=== PATIENT | female | born 1995 | race Caucasian/White ===

== ENCOUNTER 2018-06-07 17:15 | Observation (INO) | payer BC ==
[2018-06-07] MEDS: Phenergan 25 MG INJ IV PRN ×2 (18:20→20:27)
[2018-06-07 18:26] LABS: Amphetamine,Urine NEGATIVE (NEGATIVE); Barbiturate,Urine NEGATIVE (NEGATIVE); Benzodiazepine,Urine NEGATIVE (NEGATIVE); Cocaine,Urine NEGATIVE (NEGATIVE); Methadone,Urine NEGATIVE (NEGATIVE); Opiate,Urine NEGATIVE (NEGATIVE); PCP,Urine NEGATIVE (NEGATIVE); THC,Urine NEGATIVE (NEGATIVE)
[2018-06-07 18:28] LABS: Appearance CLOUDY (CLEAR); Bilirubin NEGATIVE (NEGATIVE); Blood 250 Ery/ul (0-5); Glucose NEGATIVE (NEGATIVE); Ketones NEGATIVE (NEGATIVE); Leukocyte Esterase NEGATIVE (NEGATIVE); Nitrite NEGATIVE (NEGATIVE); Protein,Urine Dip TRACE (Negative); Specific Gravity 1.025 (1.005-1.025); Urobilinogen NORMAL mg/dL (0-1)
[2018-06-07 18:29] LABS: Bacteria MODERATE /HPF (NEGATIVE); Epithelial Cells MODERATE /HPF (FEW); Mucus MANY /HPF (NEGATIVE); RBC 50-100 /HPF (0-2)
[2018-06-07] MEDS ORDERED: Lactated Ringers 1,000 ML IV ONE (18:30)
[2018-06-07 18:46] LABS: BASOPHIL % 0.2 % (0.0-0.4); Basophil (Absolute #) 0.02 (0-0.4); Eosinophil % 0.3 % (0.00-5.0); Eosinophil (Absolute #) 0.04 (0-0.5); Granulocyte Absolute (ANC) 11.55 (1.4-6.9); Granulocytes % 87.1 % (36.0-66.0); Hematocrit 32.7 % (35-47); Hemoglobin 11.3 gm/dl (12.0-16.0); Lymphocyte (Absolute #) 0.97 (1.0-4.6); Lymphocytes % 7.3 % (24.0-44.0); Mean Cell Volume 89.1 fl (78-100); Mean Corpuscular Hgb Concent. 34.6 g/dl (32-36); Mean Platelet Volume 10.1 fl (6-9.5); Monocyte (Absolute #) 0.67 (0.0-1.3); Monocytes % 5.1 % (0.0-12.0); Platelet Count 224 K/mm3 (150-450); Red Blood Count 3.67 M/mm3 (4.1-5.4); Red Cell Distribution Width 12.5 % (11.5-14.0); White Blood Count 13.3 K/mm3 (4.0-10.5)
[2018-06-07 18:48] LABS: Mean Corpuscular Hemoglobin 30.7 pg (26-32)
[2018-06-07 19:03] LABS: ALKALINE PHOSPHATASE 95 U/L (38-126); ANION GAP 11.9 MEQ/L (5-15); BLOOD UREA NITROGEN 14 mg/dL (7-17); CHLORIDE 108 mmol/L (98-107); Calcium 8.7 mg/dL (8.4-10.2); Carbon Dioxide 20 mmol/L (22-30); Creatinine 1 0.63 mg/dL (0.52-1.04); Glucose 111 mg/dL (74-106); Potassium 3.8 mmol/L (3.5-5.1); SGOT/AST 20 U/L (14-36); SGPT/ALT 23 U/L (0-35); SODIUM 137 mmol/L (137-145); Total Protein 7.1 g/dL (6.3-8.2)
[2018-06-07] MEDS ORDERED: MORPHINE SULFATE 4 MG INJ IV PRN (20:14)
[2018-06-07] MEDS: Lactated Ringers 1,000 ML IV SCH (21:14)
[2018-06-08] MEDS: Lactated Ringers 1,000 ML IV SCH (04:36)
[2018-06-08 04:51] VITALS: O2SAT 95
[2018-06-08 05:51] LABS: Basophil (Absolute #) 0 (0-0.4); Eosinophil % 0.2 % (0.00-5.0); Eosinophil (Absolute #) 0.02 (0-0.5); Granulocyte Absolute (ANC) 10.03 (1.4-6.9); Granulocytes % 85.5 % (36.0-66.0); Hematocrit 29.7 % (35-47); Hemoglobin 10.2 gm/dl (12.0-16.0); Lymphocyte (Absolute #) 1.05 (1.0-4.6); Mean Cell Volume 89.5 fl (78-100); Mean Corpuscular Hemoglobin 30.7 pg (26-32); Mean Corpuscular Hgb Concent. 34.3 g/dl (32-36); Mean Platelet Volume 10.5 fl (6-9.5); Monocyte (Absolute #) 0.62 (0.0-1.3); Monocytes % 5.3 % (0.0-12.0); Platelet Count 236 K/mm3 (150-450); Red Blood Count 3.32 M/mm3 (4.1-5.4); Red Cell Distribution Width 12.4 % (11.5-14.0); White Blood Count 11.7 K/mm3 (4.0-10.5)
[2018-06-08 06:12] LABS: ANION GAP 12.1 MEQ/L (5-15); BLOOD UREA NITROGEN 9 mg/dL (7-17); CHLORIDE 109 mmol/L (98-107); Calcium 8.5 mg/dL (8.4-10.2); Carbon Dioxide 20 mmol/L (22-30); Creatinine 1 0.44 mg/dL (0.52-1.04); Glucose 90 mg/dL (74-106); SODIUM 137 mmol/L (137-145)
--- NOTE | 2018-06-08 08:50 | PCM.SSS ---
History of Present Illness - Chief Complaint Chief Complaint: ob check History of Present Illness: is a 23 year old female at 23w 6d today who came in yesterday c/ o sudden onset of R flank pain radiating to the R lower quadrant. No fever. Vomiting. WBC were 13,000 yesterday. CO2 20. She had an ultrasound last night negative for appendicitis. Positive for hydronephrosis but the final report is pending. Last night her pain was 8-9/10; she received 1 dose of morphine and phenergan last night. This morning she is denying pain or nausea. Is eating a clear liquid diet. - Review of Systems Constitutional: Weakness Abdominal/Gastrointestinal: Abdominal Pain, Nausea, Vomiting Musculoskeletal: Back Pain All Other Systems: Reviewed and Negative Medications & Allergies Home Medications: Home Medication List Vits W-Ca,Fe,FA(<1Mg) [] 1 each PO DAILY 06/07/18 [History Confirmed 06/07/18] Allergies/Adverse Reactions: Allergies Allergy/AdvReac Type Severity Reaction Status Date / Time No Known Drug Allergies Allergy Unverified 06/07/18 17:33 - Social History Smoking Status: Never smoker - Physical Exam Vital Signs: Vital Signs - 24 hr Temp Pulse Resp BP BP Pulse Ox 06/08/18 04:50 98.5 F 80 17 103/58 95 06/08/18 04:00 18 06/07/18 17:35 98.1 F 76 18 106/67 General Appearance: no apparent distress, alert Neurologic Exam: oriented x 3, cooperative, normal mood/affect Eye Exam: eyes nml inspection Ears, Nose, Throat Exam: moist mucous membranes Neck Exam: normal inspection Respiratory Exam: normal breath sounds, lungs clear, No crackles/rales, No rhonchi, No wheezing Cardiovascular Exam: regular rate/rhythm, normal heart sounds, No murmur Gastrointestinal/Abdomen Exam: soft, normal bowel sounds, other, No tenderness, No distention, No mass, No guarding, No rebound Pelvic Exam: vaginal bleeding (gravid; fundus palpable just superior to umbilicus) Back Exam: No CVA tenderness Extremity Exam: normal inspection, No pedal edema Skin Exam: normal color, warm, dry, No rash Results - Labs Lab/Micro Results: Lab Results-Last 24 Hours 06/07/18 06/07/18 06/07/18 Range/Units 18:07 18:07 18:44 WBC 13.3 H (4.0-10.5) K/mm3 RBC 3.67 L (4.1-5.4) M/mm3 Hgb 11.3 L (12.0-16.0) gm/dl Hct 32.7 L (35-47) % MCV 89.1 (78-100) fl MCH 30.7 (26-32) pg MCHC 34.6 (32-36) g/dl RDW 12.5 (11.5-14.0) % Plt Count 224 (150-450) K/mm3 MPV 10.1 H (6-9.5) fl Gran % 87.1 H (36.0-66.0) % Eos # (Auto) 0.04 (0-0.5) Absolute Lymphs (auto) 0.97 L (1.0-4.6) Absolute Monos (auto) 0.67 (0.0-1.3) Lymphocytes % 7.3 L (24.0-44.0) % Monocytes % 5.1 (0.0-12.0) % Eosinophils % 0.3 (0.00-5.0) % Basophils % 0.2 (0.0-0.4) % Absolute Granulocytes 11.55 H (1.4-6.9) Basophils # 0.02 (0-0.4) Sodium (137-145) mmol/L Potassium (3.5-5.1) mmol/L Chloride (98-107) mmol/L Carbon Dioxide (22-30) mmol/L Anion Gap (5-15) MEQ/L BUN (7-17) mg/dL Creatinine (0.52-1.04) mg/dL Estimated GFR ML/MIN Glucose (74-106) mg/dL Calcium (8.4-10.2) mg/dL Total Bilirubin (0.2-1.3) mg/dL AST (14-36) U/L ALT (0-35) U/L Alkaline Phosphatase (38-126) U/L Serum Total Protein (6.3-8.2) g/dL Albumin (3.5-5.0) g/dL Ur Collection Type VOID Urine Color YELLOW (YELLOW) Urine Appearance CLOUDY (CLEAR) Urine pH 5.0 (5-6) Ur Specific [place] 1.025 (1.005-1.025) Urine Protein TRACE (Negative) Urine Ketones NEGATIVE (NEGATIVE) Urine Blood 250 (0-5) Brendan/ul Urine Nitrite NEGATIVE (NEGATIVE) Urine Bilirubin NEGATIVE (NEGATIVE) Urine Urobilinogen NORMAL (0-1) mg/dL Ur Leukocyte Esterase NEGATIVE (NEGATIVE) Urine Microscopic RBC 50-100 (0-2) /HPF Urine Microscopic WBC 2-5 (0-5) /HPF Ur Epithelial Cells MODERATE (FEW) /HPF Urine Bacteria MODERATE (NEGATIVE) /HPF Urine Mucus MANY (NEGATIVE) /HPF Urine Culture Reflexed YES (NO) Urine Glucose NEGATIVE (NEGATIVE) mg/dL Urine Opiates Level NEGATIVE (NEGATIVE) Ur Methadone NEGATIVE (NEGATIVE) Urine Barbiturates NEGATIVE (NEGATIVE) Ur Phencyclidine (PCP) NEGATIVE (NEGATIVE) Urine Amphetamine NEGATIVE (NEGATIVE) U Benzodiazepine Level NEGATIVE (NEGATIVE) Urine Cocaine NEGATIVE (NEGATIVE) Urine Marijuana (THC) NEGATIVE (NEGATIVE) Specimen Received 06/07/18 1800 06/07/18 06/08/18 06/08/18 Range/Units 18:44 05:13 05:13 WBC 11.7 H (4.0-10.5) K/mm3 RBC 3.32 L (4.1-5.4) M/mm3 Hgb 10.2 L (12.0-16.0) gm/dl Hct 29.7 L (35-47) % MCV 89.5 (78-100) fl MCH 30.7 (26-32) pg MCHC 34.3 (32-36) g/dl RDW 12.4 (11.5-14.0) % Plt Count 236 (150-450) K/mm3 MPV 10.5 H (6-9.5) fl Gran % 85.5 H (36.0-66.0) % Eos # (Auto) 0.02 (0-0.5) Absolute Lymphs (auto) 1.05 (1.0-4.6) Absolute Monos (auto) 0.62 (0.0-1.3) Lymphocytes % 9.0 L (24.0-44.0) % Monocytes % 5.3 (0.0-12.0) % Eosinophils % 0.2 (0.00-5.0) % Basophils % 0.0 (0.0-0.4) % Absolute Granulocytes 10.03 H (1.4-6.9) Basophils # 0 (0-0.4) Sodium 137 137 (137-145) mmol/L Potassium 3.8 4.0 (3.5-5.1) mmol/L Chloride 108 H 109 H (98-107) mmol/L Carbon Dioxide 20 L 20 L (22-30) mmol/L Anion Gap 11.9 12.1 (5-15) MEQ/L BUN 14 9 (7-17) mg/dL Creatinine 0.63 0.44 L (0.52-1.04) mg/dL Estimated GFR > 60.0 > 60.0 ML/MIN Glucose 111 H 90 (74-106) mg/dL Calcium 8.7 8.5 (8.4-10.2) mg/dL Total Bilirubin 0.30 (0.2-1.3) mg/dL AST 20 (14-36) U/L ALT 23 (0-35) U/L Alkaline Phosphatase 95 (38-126) U/L Serum Total Protein 7.1 (6.3-8.2) g/dL Albumin 4.0 (3.5-5.0) g/dL Ur Collection Type Urine Color (YELLOW) Urine Appearance (CLEAR) Urine pH (5-6) Ur Specific [place] (1.005-1.025) Urine Protein (Negative) Urine Ketones (NEGATIVE) Urine Blood (0-5) Brendan/ul Urine Nitrite (NEGATIVE) Urine Bilirubin (NEGATIVE) Urine Urobilinogen (0-1) mg/dL Ur Leukocyte Esterase (NEGATIVE) Urine Microscopic RBC (0-2) /HPF Urine Microscopic WBC (0-5) /HPF Ur Epithelial Cells (FEW) /HPF Urine Bacteria (NEGATIVE) /HPF Urine Mucus (NEGATIVE) /HPF Urine Culture Reflexed (NO) Urine Glucose (NEGATIVE) mg/dL Urine Opiates Level (NEGATIVE) Ur Methadone (NEGATIVE) Urine Barbiturates (NEGATIVE) Ur Phencyclidine (PCP) (NEGATIVE) Urine Amphetamine (NEGATIVE) U Benzodiazepine Level (NEGATIVE) Urine Cocaine (NEGATIVE) Urine Marijuana (THC) (NEGATIVE) Specimen Received - Radiology Impressions Radiology Exams & Impressions: Radiology Procedures Category Date Time Status ABDOMINAL-LIMITED [US] Stat Exams 06/07/18 23:30 Taken KIDNEY [US] Stat Exams 06/07/18 23:30 Taken OB >14 WKS 1st GESTATION [US] Stat Exams 06/07/18 23:31 Taken Assessment/Plan (1) Current Visit: Yes Status: Acute Qualifiers: Weeks of gestation: 23 weeks Qualified Code(s): Z3A.23 - 23 weeks gestation of Assessment & Plan: FHT good here. OB u/s done yesterday, verbal report that baby looked fine. Final report pending. Code(s): Z34.90 - ENCNTR FOR SUPRVSN OF NORMAL , UNSP, UNSP TRIMESTER (2) Flank pain Current Visit: Yes Status: Resolved Code(s): R10.9 - UNSPECIFIED ABDOMINAL PAIN (3) Abdominal pain Current Visit: Yes Status: Resolved Code(s): R10.9 - UNSPECIFIED ABDOMINAL PAIN (4) Hydronephrosis Current Visit: Yes Status: Chronic Qualifiers: Hydronephrosis type: unspecified Qualified Code(s): N13.30 - Unspecified hydronephrosis Assessment & Plan: Final report pending. Code(s): N13.30 - UNSPECIFIED HYDRONEPHROSIS (5) Leukocytosis Current Visit: Yes Status: Acute Qualifiers: Leukocytosis type: unspecified Qualified Code(s): D72.829 - Elevated white blood cell count, unspecified Assessment & Plan: improved; may have been up due to vomiting. Code(s): D72.829 - ELEVATED WHITE BLOOD CELL COUNT, UNSPECIFIED Hospital Summary - Hospital Course Hospital Course: is a 23 year old female at 23w 6d today who came in yesterday c/ o sudden onset of R flank pain radiating to the R lower quadrant. No fever. Vomiting. WBC were 13,000 yesterday. CO2 20. She had an ultrasound last night negative for appendicitis. Positive for hydronephrosis but the final report is pending. Last night her pain was 8-9/10; she received 1 dose of morphine and phenergan last night. This morning she is denying pain or nausea. Is eating a clear liquid diet. After her final u/s report is in, will likely discharge to home on bland diet for today. - Vitals & Intake/Output Vital Signs: Vital Signs Temperature 98.5 F 06/08/18 04:50 Pulse Rate 80 06/08/18 04:50 Respiratory Rate 17 06/08/18 04:50 Blood Pressure 103/58 06/08/18 04:50 O2 Sat by Pulse Oximetry 95 06/08/18 04:50 Intake & Output: Intake & Output 06/05/18 06/06/18 06/07/18 06/08/18 11:59 11:59 11:59 11:59 Intake Total 2089 Output Total 150 Balance 1939 Weight 80.739 kg - Lab Result Diagrams: 06/08/18 05:13 06/08/18 05:13 Lab Results-Last 24 Hrs: Lab Results-Last 24 Hours 06/07/18 06/07/18 06/07/18 Range/Units 18:07 18:07 18:44 WBC 13.3 H (4.0-10.5) K/mm3 RBC 3.67 L (4.1-5.4) M/mm3 Hgb 11.3 L (12.0-16.0) gm/dl Hct 32.7 L (35-47) % MCV 89.1 (78-100) fl MCH 30.7 (26-32) pg MCHC 34.6 (32-36) g/dl RDW 12.5 (11.5-14.0) % Plt Count 224 (150-450) K/mm3 MPV 10.1 H (6-9.5) fl Gran % 87.1 H (36.0-66.0) % Eos # (Auto) 0.04 (0-0.5) Absolute Lymphs (auto) 0.97 L (1.0-4.6) Absolute Monos (auto) 0.67 (0.0-1.3) Lymphocytes % 7.3 L (24.0-44.0) % Monocytes % 5.1 (0.0-12.0) % Eosinophils % 0.3 (0.00-5.0) % Basophils % 0.2 (0.0-0.4) % Absolute Granulocytes 11.55 H (1.4-6.9) Basophils # 0.02 (0-0.4) Sodium (137-145) mmol/L Potassium (3.5-5.1) mmol/L Chloride (98-107) mmol/L Carbon Dioxide (22-30) mmol/L Anion Gap (5-15) MEQ/L BUN (7-17) mg/dL Creatinine (0.52-1.04) mg/dL Estimated GFR ML/MIN Glucose (74-106) mg/dL Calcium (8.4-10.2) mg/dL Total Bilirubin (0.2-1.3) mg/dL AST (14-36) U/L ALT (0-35) U/L Alkaline Phosphatase (38-126) U/L Serum Total Protein (6.3-8.2) g/dL Albumin (3.5-5.0) g/dL Ur Collection Type VOID Urine Color YELLOW (YELLOW) Urine Appearance CLOUDY (CLEAR) Urine pH 5.0 (5-6) Ur Specific [place] 1.025 (1.005-1.025) Urine Protein TRACE (Negative) Urine Ketones NEGATIVE (NEGATIVE) Urine Blood 250 (0-5) Brendan/ul Urine Nitrite NEGATIVE (NEGATIVE) Urine Bilirubin NEGATIVE (NEGATIVE) Urine Urobilinogen NORMAL (0-1) mg/dL Ur Leukocyte Esterase NEGATIVE (NEGATIVE) Urine Microscopic RBC 50-100 (0-2) /HPF Urine Microscopic WBC 2-5 (0-5) /HPF Ur Epithelial Cells MODERATE (FEW) /HPF Urine Bacteria MODERATE (NEGATIVE) /HPF Urine Mucus MANY (NEGATIVE) /HPF Urine Culture Reflexed YES (NO) Urine Glucose NEGATIVE (NEGATIVE) mg/dL Urine Opiates Level NEGATIVE (NEGATIVE) Ur Methadone NEGATIVE (NEGATIVE) Urine Barbiturates NEGATIVE (NEGATIVE) Ur Phencyclidine (PCP) NEGATIVE (NEGATIVE) Urine Amphetamine NEGATIVE (NEGATIVE) U Benzodiazepine Level NEGATIVE (NEGATIVE) Urine Cocaine NEGATIVE (NEGATIVE) Urine Marijuana (THC) NEGATIVE (NEGATIVE) Specimen Received 06/07/18 1800 06/07/18 06/08/18 06/08/18 Range/Units 18:44 05:13 05:13 WBC 11.7 H (4.0-10.5) K/mm3 RBC 3.32 L (4.1-5.4) M/mm3 Hgb 10.2 L (12.0-16.0) gm/dl Hct 29.7 L (35-47) % MCV 89.5 (78-100) fl MCH 30.7 (26-32) pg MCHC 34.3 (32-36) g/dl RDW 12.4 (11.5-14.0) % Plt Count 236 (150-450) K/mm3 MPV 10.5 H (6-9.5) fl Gran % 85.5 H (36.0-66.0) % Eos # (Auto) 0.02 (0-0.5) Absolute Lymphs (auto) 1.05 (1.0-4.6) Absolute Monos (auto) 0.62 (0.0-1.3) Lymphocytes % 9.0 L (24.0-44.0) % Monocytes % 5.3 (0.0-12.0) % Eosinophils % 0.2 (0.00-5.0) % Basophils % 0.0 (0.0-0.4) % Absolute Granulocytes 10.03 H (1.4-6.9) Basophils # 0 (0-0.4) Sodium 137 137 (137-145) mmol/L Potassium 3.8 4.0 (3.5-5.1) mmol/L Chloride 108 H 109 H (98-107) mmol/L Carbon Dioxide 20 L 20 L (22-30) mmol/L Anion Gap 11.9 12.1 (5-15) MEQ/L BUN 14 9 (7-17) mg/dL Creatinine 0.63 0.44 L (0.52-1.04) mg/dL Estimated GFR > 60.0 > 60.0 ML/MIN Glucose 111 H 90 (74-106) mg/dL Calcium 8.7 8.5 (8.4-10.2) mg/dL Total Bilirubin 0.30 (0.2-1.3) mg/dL AST 20 (14-36) U/L ALT 23 (0-35) U/L Alkaline Phosphatase 95 (38-126) U/L Serum Total Protein 7.1 (6.3-8.2) g/dL Albumin 4.0 (3.5-5.0) g/dL Ur Collection Type Urine Color (YELLOW) Urine Appearance (CLEAR) Urine pH (5-6) Ur Specific [place] (1.005-1.025) Urine Protein (Negative) Urine Ketones (NEGATIVE) Urine Blood (0-5) Brendan/ul Urine Nitrite (NEGATIVE) Urine Bilirubin (NEGATIVE) Urine Urobilinogen (0-1) mg/dL Ur Leukocyte Esterase (NEGATIVE) Urine Microscopic RBC (0-2) /HPF Urine Microscopic WBC (0-5) /HPF Ur Epithelial Cells (FEW) /HPF Urine Bacteria (NEGATIVE) /HPF Urine Mucus (NEGATIVE) /HPF Urine Culture Reflexed (NO) Urine Glucose (NEGATIVE) mg/dL Urine Opiates Level (NEGATIVE) Ur Methadone (NEGATIVE) Urine Barbiturates (NEGATIVE) Ur Phencyclidine (PCP) (NEGATIVE) Urine Amphetamine (NEGATIVE) U Benzodiazepine Level (NEGATIVE) Urine Cocaine (NEGATIVE) Urine Marijuana (THC) (NEGATIVE) Specimen Received - Radiology Exams Ordered Rad Exams-Entire Visit: Radiology Procedures Category Date Time Status ABDOMINAL-LIMITED [US] Stat Exams 06/07/18 23:30 Taken KIDNEY [US] Stat Exams 06/07/18 23:30 Taken OB >14 WKS 1st GESTATION [US] Stat Exams 06/07/18 23:31 Taken - Discharge Disposition: Home, Self-Care Condition: Stable Prescriptions: No Action Vits W-Ca,Fe,FA(<1Mg) [] 1 each PO DAILY Follow up with: HAY GARCIA [Primary Care Provider] - 1 Week
--- NOTE | 2018-06-08 09:18 | XRAY ---
Indication: Right lower quadrant pain. 24 weeks . Two-dimensional renal sonogram performed. Comparison: None Right kidney measures 12.0 x 5.2 x 5.4 cm and the left measures 12.5 x 5.0 x 5.4 cm. Normal color Doppler flow bilaterally. No suspicious solid/cystic mass. There is mild/moderate bilateral hydronephrosis without perinephric fluid. Images of the nominally distended urinary bladder unremarkable. Ureteral jets not seen within the allotted exam time. Impression: Bilateral hydronephrosis presumed related to current gravid status. Comment: Preliminary report was given.
--- NOTE | 2018-06-08 09:18 | XRAY ---
Indication: Right lower quadrant pain. 24 weeks . Two-dimensional targeted right lower quadrant sonogram performed. Appendix not seen. No suspicious solid/cystic mass or free fluid. Comment: Preliminary report was given.
--- NOTE | 2018-06-08 09:19 | XRAY ---
Indication: Right lower quadrant pain. 2-dimensional OB ultrasound performed. Comparison: May 10, 2018. There is a again single viable intrauterine in cephalic presentation. heart rate 161 BPM. anatomy previously documented. Visualized stomach, kidneys, and bladder are unremarkable. Placenta is again anterior without abruption/previa. BPD measures 6.04 cm corresponding to 24 weeks 4 days. HC measures 21.98 cm corresponding to 24 weeks 0 days. AC measures 18.11 cm corresponding to 23 weeks 0 days. FL measures 4.52 cm corresponding to 25 weeks 0 days. TIAGO is 10.2 cm. Impression: Again single viable intrauterine with mean gestational age 24 weeks 1 day. Normal progression of . No new/acute findings. Comment: Preliminary report was given.
[2018-06-08 10:50] VITALS: BP 100/66; PULSE 82
== END 2018-06-08 10:40 | disposition home or self-care (01) ==
LOC: MED SURG 17:15
PROVIDERS: ADMIT Family Medicine; ATTEND Family Medicine
DX: O26.93 Pregnancy related conditions, unspecified, third trimester (principal); Z3A.23 23 weeks gestation of pregnancy; R10.9 Unspecified abdominal pain; D72.829 Elevated white blood cell count, unspecified
CPT/HCPCS: 36415; 76705; 76770; 76805; 80048; 80053; 80307; 81000; 85025; 87086; G0378; J2270; J2550

== ENCOUNTER 2018-06-14 22:38 | Observation (INO) | payer BC ==
[2018-06-15] MEDS ORDERED: Phenergan 25 MG INJ IV PRN (00:35)
[2018-06-15] MEDS ORDERED: TYLENOL EXTRA STRENGTH 500 MG PO PRN (00:36)
[2018-06-15] MEDS ORDERED: MORPHINE SULFATE 4 MG INJ IV PRN (00:37)
[2018-06-15] MEDS ORDERED: Lactated Ringers 1,000 ML IV SCH ×2 (01:00→02:00)
[2018-06-15 03:53] LABS: ALBUMIN 3.8 g/dL (3.5-5.0); ALKALINE PHOSPHATASE 97 U/L (38-126); ANION GAP 12.5 MEQ/L (5-15); BLOOD UREA NITROGEN 13 mg/dL (7-17); CHLORIDE 106 mmol/L (98-107); Calcium 9.1 mg/dL (8.4-10.2); Carbon Dioxide 22 mmol/L (22-30); Creatinine 1 0.66 mg/dL (0.52-1.04); Glucose 101 mg/dL (74-106); Potassium 3.7 mmol/L (3.5-5.1); SGOT/AST 24 U/L (14-36); SGPT/ALT 21 U/L (0-35); SODIUM 137 mmol/L (137-145)
[2018-06-15 04:18] LABS: Appearance CLEAR (CLEAR); Bilirubin NEGATIVE (NEGATIVE); Blood 50 Ery/ul (0-5); Glucose NEGATIVE (NEGATIVE); Ketones NEGATIVE (NEGATIVE); Leukocyte Esterase NEGATIVE (NEGATIVE); Nitrite NEGATIVE (NEGATIVE); Ph 7.5 (5-6); Protein,Urine Dip NEGATIVE (Negative); Specific Gravity 1.005 (1.005-1.025); Urobilinogen NORMAL mg/dL (0-1)
[2018-06-15 04:19] LABS: Bacteria FEW /HPF (NEGATIVE); Epithelial Cells FEW /HPF (FEW); WBC 0-2 /HPF (0-5)
[2018-06-15 04:29] LABS: BASOPHIL % 0.1 % (0.0-0.4); Basophil (Absolute #) 0.01 (0-0.4); Eosinophil % 0.3 % (0.00-5.0); Eosinophil (Absolute #) 0.03 (0-0.5); Granulocyte Absolute (ANC) 9.37 (1.4-6.9); Hematocrit 33.2 % (35-47); Hemoglobin 11.3 gm/dl (12.0-16.0); Lymphocyte (Absolute #) 0.88 (1.0-4.6); Lymphocytes % 7.9 % (24.0-44.0); Mean Cell Volume 89.2 fl (78-100); Mean Platelet Volume 11.2 fl (6-9.5); Monocyte (Absolute #) 0.86 (0.0-1.3); Monocytes % 7.7 % (0.0-12.0); Platelet Count 209 K/mm3 (150-450); Red Blood Count 3.72 M/mm3 (4.1-5.4); Red Cell Distribution Width 12.7 % (11.5-14.0); White Blood Count 11.2 K/mm3 (4.0-10.5)
[2018-06-15 04:30] LABS: Mean Corpuscular Hemoglobin 30.3 pg (26-32)
--- NOTE | 2018-06-15 10:30 | XRAY ---
Indication: Right lower quadrant pain. Two-dimensional gallbladder sonogram performed. Comparison: None Visualized portions of the gallbladder, liver, and pancreas appear sonographically normal. Common bile duct measures 3.9 mm. No ascites. Renal sonogram reported separately. Incidental small right lung base effusion. Impression: Negative gallbladder sonogram. Incidental right lung base effusion.
--- NOTE | 2018-06-15 10:32 | XRAY ---
Indication: Right lower quadrant pain. 3rd trimester . Two-dimensional renal sonogram performed. Comparison: June 07, 2018. Right kidney measures 11.5 x 5.8 x 5.9 cm and the left measures 11.4 x 5.8 x 5.2 cm again with normal color Doppler flow. Again no solid/cystic mass. There remains moderate bilateral hydronephrosis without perinephric fluid. Images of the urinary bladder normally distended. Normal right ureteral jet. Left ureteral jet not seen within the allotted exam time. Impression: Stable bilateral hydronephrosis again presumed related to current gravid status.
[2018-06-15 11:16] VITALS: BP 108/64; PULSE 93
[2018-06-16] MEDS ORDERED: BUSPAR 5 MG PO SCH (10:00)
[2018-06-16] MEDS ORDERED: Lexapro 10 MG PO SCH (10:00)
== END 2018-06-15 11:05 | disposition home or self-care (01) ==
LOC: OB 22:38
PROVIDERS: ADMIT Family Medicine; ATTEND Family Medicine
DX: Z34.02 Encounter for supervision of normal first pregnancy, second trimester (principal)
CPT/HCPCS: 36415; 76705; 76770; 80053; 81000; 85025; G0378; J2270; J2550

== ENCOUNTER 2018-07-06 07:13 | Observation (INO) | payer BC ==
[2018-07-06] MEDS ORDERED: Phenergan 25 MG INJ IV PRN (08:12)
[2018-07-06 08:17] LABS: Appearance CLEAR (CLEAR); Bacteria MODERATE /HPF (NEGATIVE); Bilirubin NEGATIVE (NEGATIVE); Blood 50 Ery/ul (0-5); Epithelial Cells FEW /HPF (FEW); Glucose NEGATIVE (NEGATIVE); Ketones NEGATIVE (NEGATIVE); Leukocyte Esterase TRACE (NEGATIVE); Mucus MODERATE /HPF (NEGATIVE); Nitrite NEGATIVE (NEGATIVE); Protein,Urine Dip NEGATIVE (Negative); Urobilinogen NORMAL mg/dL (0-1)
[2018-07-06] MEDS ORDERED: Lactated Ringers 1,000 ML IV SCH ×2 (08:30→09:30)
[2018-07-06] MEDS: MORPHINE SULFATE 4 MG INJ IV PRN ×2 (09:21→13:23)
[2018-07-06 09:35] LABS: Basophil (Absolute #) 0 (0-0.4); Eosinophil % 0.1 % (0.00-5.0); Eosinophil (Absolute #) 0.01 (0-0.5); Granulocyte Absolute (ANC) 12.16 (1.4-6.9); Granulocytes % 89.7 % (36.0-66.0); Hematocrit 35.4 % (35-47); Hemoglobin 12.2 gm/dl (12.0-16.0); Lymphocyte (Absolute #) 0.74 (1.0-4.6); Lymphocytes % 5.5 % (24.0-44.0); Mean Cell Volume 88.1 fl (78-100); Mean Corpuscular Hemoglobin 30.3 pg (26-32); Mean Corpuscular Hgb Concent. 34.5 g/dl (32-36); Mean Platelet Volume 10.5 fl (6-9.5); Monocyte (Absolute #) 0.63 (0.0-1.3); Monocytes % 4.7 % (0.0-12.0); Platelet Count 230 K/mm3 (150-450); Red Blood Count 4.02 M/mm3 (4.1-5.4); Red Cell Distribution Width 12.1 % (11.5-14.0); White Blood Count 13.5 K/mm3 (4.0-10.5)
[2018-07-06 09:58] LABS: ALBUMIN 3.9 g/dL (3.5-5.0); ALKALINE PHOSPHATASE 114 U/L (38-126); ANION GAP 14.2 MEQ/L (5-15); BLOOD UREA NITROGEN 13 mg/dL (7-17); CHLORIDE 108 mmol/L (98-107); Calcium 8.8 mg/dL (8.4-10.2); Carbon Dioxide 20 mmol/L (22-30); Creatinine 1 0.58 mg/dL (0.52-1.04); Glucose 84 mg/dL (74-106); Potassium 4.4 mmol/L (3.5-5.1); SGOT/AST 33 U/L (14-36); SGPT/ALT 37 U/L (0-35); SODIUM 138 mmol/L (137-145); Total Protein 7.1 g/dL (6.3-8.2)
--- NOTE | 2018-07-06 10:38 | XRAY ---
Exam: Renal ultrasound from 07/06/2018. Comparison: Renal ultrasound examination from 06/15/2018. Indication: 23-year-old female with left flank pain. The patient is in her third trimester of . Technique: Longitudinal and transverse real-time sonogram images were obtained. Findings: The right kidney measures 12.2 cm x 5.6 cm x 5.5 cm. Right renal cortex thickness measures 1.0 cm. There is moderate hydronephrosis with a dilated renal pelvis measuring 2.3 cm in diameter, previous 2.1 cm. This is slightly more distended than that seen on 06/15/2018. No renal mass is seen. Only the proximal right ureter could be visualized which appeared dilated. The left kidney measures 12.8 cm x 5.7 cm x 5.8 cm. Left renal cortex thickness is 1.0 cm. The left renal pelvis measures 2.9 cm in diameter which is mildly increased from that seen on 06/15/2018 when it measured 2.3 cm in diameter. No left renal mass is seen. The visualized proximal left ureter was also dilated. The head is again seen within the maternal pelvis. The maternal urinary bladder is partially empty. Ureteral jets were not seen with color flow imaging on either side during the allotted time. Impression: 1. I again see bilateral hydronephrosis, left greater than right. The degree of hydronephrosis on each side appears slightly increased compared to 06/15/2018.
[2018-07-06 17:48] VITALS: BP 114/70; PULSE 80
== END 2018-07-06 19:32 | disposition home or self-care (01) ==
LOC: OB 07:13
PROVIDERS: ADMIT Family Medicine; ATTEND Family Medicine
DX: Z34.02 Encounter for supervision of normal first pregnancy, second trimester (principal)
CPT/HCPCS: 36415; 76770; 80053; 81001; 85025; 87086; G0378; J2270; J2550

== ENCOUNTER 2018-09-28 11:04 | Observation (INO) | payer BC ==
[2018-09-28 11:25] VITALS: BP 121/88; PULSE 89
--- NOTE | 2018-09-28 12:36 | XRAY ---
Indication: Evaluate TIAGO. Limited OB ultrasound performed to evaluate TIAGO. Four-quadrant TIAGO is 9 cm, previously 8.1 cm on September 23, 2018.
== END 2018-09-28 13:30 | disposition home or self-care (01) ==
LOC: OB 11:04
PROVIDERS: ADMIT Family Medicine; ATTEND Family Medicine
DX: Z34.03 Encounter for supervision of normal first pregnancy, third trimester (principal)
CPT/HCPCS: 59025; 76815; G0378

== ENCOUNTER 2018-09-29 09:40 | Observation (INO) | payer BC ==
[2018-09-29 10:56] LABS: Appearance CLEAR (CLEAR); Bilirubin NEGATIVE (NEGATIVE); Blood NEGATIVE Ery/ul (0-5); Glucose NEGATIVE (NEGATIVE); Ketones NEGATIVE (NEGATIVE); Leukocyte Esterase NEGATIVE (NEGATIVE); Nitrite NEGATIVE (NEGATIVE); Protein,Urine Dip NEGATIVE (Negative); Specific Gravity 1.016 (1.005-1.025); Urobilinogen NEGATIVE mg/dL (0-1)
[2018-09-29] MEDS ORDERED: Lactated Ringers 1,000 ML IV SCH ×2 (12:00→15:00)
[2018-09-29 12:19] LABS: BASOPHIL % 0.2 % (0.0-0.4); Basophil (Absolute #) 0.02 (0-0.4); Eosinophil % 0.6 % (0.00-5.0); Eosinophil (Absolute #) 0.05 (0-0.5); Granulocyte Absolute (ANC) 6.84 (1.4-6.9); Hematocrit 36.4 % (35-47); Hemoglobin 11.7 gm/dl (12.0-16.0); Lymphocyte (Absolute #) 1.01 (1.0-4.6); Lymphocytes % 11.8 % (24.0-44.0); Mean Cell Volume 84.5 fl (78-100); Mean Corpuscular Hemoglobin 27.1 pg (26-32); Mean Corpuscular Hgb Concent. 32.1 g/dl (32-36); Mean Platelet Volume 11.2 fl (6-9.5); Monocyte (Absolute #) 0.63 (0.0-1.3); Monocytes % 7.4 % (0.0-12.0); Platelet Count 216 K/mm3 (150-450); Red Blood Count 4.31 M/mm3 (4.1-5.4); Red Cell Distribution Width 18.6 % (11.5-14.0); White Blood Count 8.6 K/mm3 (4.0-10.5)
[2018-09-29 12:29] LABS: ALBUMIN 3.7 g/dL (3.5-5.0); ALKALINE PHOSPHATASE 211 U/L (38-126); ANION GAP 12.5 MEQ/L (5-15); BLOOD UREA NITROGEN 11 mg/dL (7-17); CHLORIDE 108 mmol/L (98-107); Calcium 8.9 mg/dL (8.4-10.2); Carbon Dioxide 20 mmol/L (22-30); Creatinine 1 0.51 mg/dL (0.52-1.04); Glucose 81 mg/dL (74-106); SGOT/AST 22 U/L (14-36); SGPT/ALT 14 U/L (0-35); SODIUM 137 mmol/L (137-145)
[2018-09-29 19:19] VITALS: BP 112/72; PULSE 80
== END 2018-09-29 19:15 | disposition home or self-care (01) ==
LOC: OB 09:40 → UNDOADMOB 09:40 → OB 09:41 → MED SURG 13:37 → OB 13:37
PROVIDERS: ADMIT Family Medicine; ATTEND Family Medicine
DX: Z34.03 Encounter for supervision of normal first pregnancy, third trimester (principal)
CPT/HCPCS: 36415; 59025; 80053; 81001; 85025; G0378

== ENCOUNTER 2018-09-30 14:03 | Observation (INO) | payer BC ==
[2018-09-30] MEDS ORDERED: BRETHINE 1 MG/ML SQ PRN (14:19)
[2018-09-30] MEDS ORDERED: TYLENOL EXTRA STRENGTH 500 MG PO PRN (14:27)
[2018-09-30] MEDS ORDERED: PITOCIN 30 UNITS/ LR 500 ML 500 ML IV SCH ×2 (14:30)
[2018-09-30] MEDS ORDERED: Lactated Ringers 1,000 ML IV SCH (14:30)
[2018-09-30 15:39] LABS: BASOPHIL % 0.1 % (0.0-0.4); Basophil (Absolute #) 0.01 (0-0.4); Eosinophil % 0.7 % (0.00-5.0); Eosinophil (Absolute #) 0.05 (0-0.5); Granulocyte Absolute (ANC) 5.58 (1.4-6.9); Granulocytes % 77.5 % (36.0-66.0); Hematocrit 35.5 % (35-47); Hemoglobin 11.5 gm/dl (12.0-16.0); Lymphocyte (Absolute #) 0.92 (1.0-4.6); Lymphocytes % 12.8 % (24.0-44.0); Mean Cell Volume 84.9 fl (78-100); Mean Corpuscular Hemoglobin 27.5 pg (26-32); Mean Corpuscular Hgb Concent. 32.4 g/dl (32-36); Mean Platelet Volume 10.7 fl (6-9.5); Monocyte (Absolute #) 0.64 (0.0-1.3); Monocytes % 8.9 % (0.0-12.0); Platelet Count 216 K/mm3 (150-450); Red Blood Count 4.18 M/mm3 (4.1-5.4); Red Cell Distribution Width 18.8 % (11.5-14.0); White Blood Count 7.2 K/mm3 (4.0-10.5)
[2018-09-30 17:31] LABS: Amphetamine,Urine NEGATIVE (NEGATIVE); Barbiturate,Urine NEGATIVE (NEGATIVE); Benzodiazepine,Urine NEGATIVE (NEGATIVE); Cocaine,Urine NEGATIVE (NEGATIVE); Methadone,Urine NEGATIVE (NEGATIVE); Opiate,Urine NEGATIVE (NEGATIVE); PCP,Urine NEGATIVE (NEGATIVE); THC,Urine NEGATIVE (NEGATIVE)
[2018-09-30] MEDS ORDERED: OMNIPEN 1GM / NaCl 100ML 100 ML IV SCH (18:27)
[2018-09-30] MEDS ORDERED: Cervidil 10 MG VAG SCH (22:00)
[2018-10-01] MEDS ORDERED: OMNIPEN 2 GM / NACL 100ML 100 ML IV ONE (05:00)
[2018-10-01] MEDS: Lactated Ringers 1,000 ML IV SCH ×2 (05:00→12:36)
[2018-10-01] MEDS ORDERED: PITOCIN 30 UNITS/ LR 500 ML 500 ML IV SCH (05:00)
[2018-10-01] MEDS: OMNIPEN 1GM / NaCl 100ML 100 ML IV SCH ×4 (09:02→20:58)
[2018-10-02] MEDS: OMNIPEN 1GM / NaCl 100ML 100 ML IV SCH ×3 (01:26→09:15)
--- NOTE | 2018-10-02 10:28 | PCM.DS ---
Discharge Summary Date of Admission: 09/30/18 14:03 Admitting Physician: HAY GARCIA Primary Care Provider: HAY GARCIA Allergies Allergies No Known Drug Allergies Allergy (Unverified 06/07/18 17:33) Hospital Summary - Hospital Course Hospital Course: Pt is 23 yo at 40w 3d here for post dates IOL. She came in with a closed cervix, De La Garza score about 3. She received cervadil all night, then pitocin the next day, with scant contractions and no cervical change. Received 3 doses of cytotec with scant contractions. Baby FHT Cat I throughout. She will be discharged to home today and plans to return in 4d to re-cervadil. - Vitals & Intake/Output Vital Signs: Vital Signs Temperature 97.9 F 10/02/18 08:00 Pulse Rate 86 10/02/18 08:00 Respiratory Rate 18 10/02/18 08:00 Blood Pressure 127/89 10/02/18 08:00 O2 Sat by Pulse Oximetry Intake & Output: Intake & Output 09/29/18 09/30/18 10/01/18 10/02/18 11:59 11:59 11:59 11:59 Intake Total 1200 3279 Balance 1200 3279 Weight 197 kg - Lab Result Diagrams: 09/30/18 15:37 Discharge Exam General Appearance: no apparent distress, alert Neurologic Exam: oriented x 3, cooperative Skin Exam: normal color, warm, dry, No rash Respiratory Exam: No respiratory distress Gastrointestinal/Abdomen Exam: other (gravid) Extremity Exam: normal inspection, No pedal edema, No swelling Final Diagnosis/Problem List - Final Discharge Diagnosis/Problem (1) Current Visit: No Status: Acute Assessment & Plan: Very stable - will discharge to home and have her come back to re-induce in 4d. Labor precautions given. - Discharge Disposition: Home, Self-Care Condition: Good Prescriptions: No Action Vits W-Ca,Fe,FA(<1Mg) [] 1 each PO DAILY Follow up with: HAY GARCIA [Primary Care Provider] - 1 Week
[2018-10-02 11:14] VITALS: BP 117/79; PULSE 75
== END 2018-10-02 10:45 | disposition home or self-care (01) ==
LOC: OB 14:03
PROVIDERS: ADMIT Family Medicine; ATTEND Family Medicine
DX: O61.0 Failed medical induction of labor (principal); Z3A.40 40 weeks gestation of pregnancy
CPT/HCPCS: 36415; 80307; 85025; G0378; J0290; J2590

== ENCOUNTER 2018-10-06 18:01 | Inpatient (IN) | payer BC ==
[2018-10-06] MEDS ORDERED: BRETHINE 1 MG/ML SQ PRN (18:20)
[2018-10-06] MEDS ORDERED: XYLOCAINE 1% HCL 20 ML MDV IJ PRN (21:41)
[2018-10-06 21:57] LABS: BASOPHIL % 0.3 % (0.0-0.4); Basophil (Absolute #) 0.02 (0-0.4); Eosinophil % 1.2 % (0.00-5.0); Eosinophil (Absolute #) 0.08 (0-0.5); Granulocyte Absolute (ANC) 5.17 (1.4-6.9); Hemoglobin 11.7 gm/dl (12.0-16.0); Lymphocyte (Absolute #) 1.03 (1.0-4.6); Lymphocytes % 14.9 % (24.0-44.0); Mean Cell Volume 84.5 fl (78-100); Mean Corpuscular Hgb Concent. 32.5 g/dl (32-36); Mean Platelet Volume 12.1 fl (6-9.5); Monocyte (Absolute #) 0.59 (0.0-1.3); Monocytes % 8.6 % (0.0-12.0); Platelet Count 225 K/mm3 (150-450); Red Blood Count 4.26 M/mm3 (4.1-5.4); Red Cell Distribution Width 18.5 % (11.5-14.0); White Blood Count 6.9 K/mm3 (4.0-10.5)
[2018-10-06] MEDS ORDERED: PITOCIN 30 UNITS/ LR 500 ML 500 ML IV SCH (22:00)
[2018-10-06] MEDS ORDERED: Cervidil 10 MG VAG SCH (22:00)
[2018-10-06 22:02] LABS: Mean Corpuscular Hemoglobin 27.4 pg (26-32)
[2018-10-06 22:15] LABS: Amphetamine,Urine NEGATIVE (NEGATIVE); Barbiturate,Urine NEGATIVE (NEGATIVE); Benzodiazepine,Urine NEGATIVE (NEGATIVE); Cocaine,Urine NEGATIVE (NEGATIVE); Methadone,Urine NEGATIVE (NEGATIVE); Opiate,Urine NEGATIVE (NEGATIVE); PCP,Urine NEGATIVE (NEGATIVE); THC,Urine NEGATIVE (NEGATIVE)
[2018-10-07] MEDS ORDERED: PITOCIN 30 UNITS/ LR 500 ML 500 ML IV SCH (10:00)
[2018-10-07] MEDS ORDERED: OMNIPEN 2 GM / NACL 100ML 100 ML IV ONE (10:00)
[2018-10-07] MEDS: Lactated Ringers 1,000 ML IV SCH ×2 (10:06→19:37)
[2018-10-07] MEDS: OMNIPEN 1GM / NaCl 100ML 100 ML IV SCH ×3 (14:06→22:50)
[2018-10-08] MEDS: OMNIPEN 1GM / NaCl 100ML 100 ML IV SCH ×3 (02:19→10:14)
[2018-10-08] MEDS: Lactated Ringers 1,000 ML IV SCH ×4 (04:52→23:55)
[2018-10-08] MEDS ORDERED: Ephedrine Sulfate 50 MG/ML IV PRN (08:00)
[2018-10-08] MEDS ORDERED: Lactated Ringers 1,000 ML IV ONE (08:00)
[2018-10-08] MEDS ORDERED: OB EPIDURAL NAROPIN/SUFENTANIL IN NACL EPIDURAL PRN (08:00)
[2018-10-08] MEDS ORDERED: Mylicon 80MG PO PRN (13:32)
[2018-10-08] MEDS ORDERED: TUCKS TP PRN (13:32)
[2018-10-08] MEDS ORDERED: Restoril 15 MG PO PRN (13:32)
[2018-10-08] MEDS ORDERED: Anucort-HC SUPPOSITORY PR PRN (13:32)
[2018-10-08] MEDS ORDERED: CORTISONE 1% CREAM TP PRN (13:32)
[2018-10-08] MEDS ORDERED: Ambien 10 MG PO PRN (13:32)
[2018-10-08] MEDS ORDERED: Dulcolax 10 MG SUPP PR PRN (13:32)
[2018-10-08] MEDS ORDERED: MOTRIN 400 MG PO PRN (13:32)
[2018-10-08] MEDS ORDERED: NORCO 5/325 MG PO PRN (13:32)
[2018-10-08] MEDS ORDERED: Dermoplast Spray TP PRN (13:32)
[2018-10-08] MEDS ORDERED: Hemabate IM ONE ×2 (15:27→15:29)
[2018-10-08] MEDS ORDERED: PITOCIN 30 UNITS/ LR 500 ML 30 UNITS/500 ML IV.SOLN. IV SCH (15:30)
[2018-10-08 15:46] LABS: BASOPHIL % 0.2 % (0.0-0.4); Basophil (Absolute #) 0.02 (0-0.4); Eosinophil % 0.2 % (0.00-5.0); Eosinophil (Absolute #) 0.02 (0-0.5); Granulocyte Absolute (ANC) 10.54 (1.4-6.9); Granulocytes % 86.5 % (36.0-66.0); Hematocrit 28.1 % (35-47); Hemoglobin 9.2 gm/dl (12.0-16.0); Lymphocytes % 5.7 % (24.0-44.0); Mean Cell Volume 85.2 fl (78-100); Mean Corpuscular Hgb Concent. 32.7 g/dl (32-36); Mean Platelet Volume 11.1 fl (6-9.5); Monocytes % 7.4 % (0.0-12.0); Platelet Count 174 K/mm3 (150-450); Red Cell Distribution Width 18.2 % (11.5-14.0); White Blood Count 12.2 K/mm3 (4.0-10.5)
[2018-10-08 15:49] LABS: Mean Corpuscular Hemoglobin 27.8 pg (26-32)
[2018-10-08 16:06] LABS: INR 0.97 (0.8-3.0)
[2018-10-08 16:09] LABS: PTT 20.1 SECONDS (25.3-37.0)
[2018-10-08 16:25] LABS: ABO TYPING O; Antibody Screen NEGATIVE (NEGATIVE); RH TYPING POSITIVE
[2018-10-08] MEDS: TYLENOL EXTRA STRENGTH 500 MG PO PRN (21:38)
[2018-10-08] MEDS: Colace 100 MG PO SCH (21:38)
[2018-10-08 21:40] LABS: BASOPHIL % 0.1 % (0.0-0.4); Basophil (Absolute #) 0.01 (0-0.4); Eosinophil % 0.2 % (0.00-5.0); Eosinophil (Absolute #) 0.02 (0-0.5); Granulocyte Absolute (ANC) 10.01 (1.4-6.9); Granulocytes % 83.1 % (36.0-66.0); Hematocrit 25.3 % (35-47); Hemoglobin 8.1 gm/dl (12.0-16.0); Lymphocyte (Absolute #) 1.05 (1.0-4.6); Lymphocytes % 8.7 % (24.0-44.0); Mean Cell Volume 85.8 fl (78-100); Mean Platelet Volume 10.7 fl (6-9.5); Monocyte (Absolute #) 0.95 (0.0-1.3); Monocytes % 7.9 % (0.0-12.0); Platelet Count 160 K/mm3 (150-450); Red Blood Count 2.95 M/mm3 (4.1-5.4); Red Cell Distribution Width 18.3 % (11.5-14.0)
[2018-10-08 21:41] LABS: Mean Corpuscular Hemoglobin 27.4 pg (26-32)
[2018-10-08 22:50] VITALS: O2SAT 97
[2018-10-09 06:10] LABS: BASOPHIL % 0.1 % (0.0-0.4); Basophil (Absolute #) 0.01 (0-0.4); Eosinophil % 0.6 % (0.00-5.0); Eosinophil (Absolute #) 0.05 (0-0.5); Granulocyte Absolute (ANC) 6.48 (1.4-6.9); Granulocytes % 78.8 % (36.0-66.0); Lymphocyte (Absolute #) 1.01 (1.0-4.6); Lymphocytes % 12.3 % (24.0-44.0); Mean Cell Volume 86.2 fl (78-100); Monocyte (Absolute #) 0.67 (0.0-1.3); Monocytes % 8.2 % (0.0-12.0); Platelet Count 164 K/mm3 (150-450); Red Cell Distribution Width 18.3 % (11.5-14.0); White Blood Count 8.2 K/mm3 (4.0-10.5)
[2018-10-09 06:19] LABS: Mean Corpuscular Hemoglobin 27.5 pg (26-32)
[2018-10-09] MEDS: FERREX 150 PO SCH (10:52)
[2018-10-09] MEDS: Colace 100 MG PO SCH ×2 (10:52→21:21)
[2018-10-09] MEDS: TYLENOL EXTRA STRENGTH 500 MG PO PRN (21:21)
[2018-10-10 06:23] LABS: Hematocrit 24.6 % (35-47); Hemoglobin 7.8 gm/dl (12.0-16.0); Mean Cell Volume 86.6 fl (78-100); Mean Corpuscular Hgb Concent. 31.7 g/dl (32-36); Mean Platelet Volume 10.5 fl (6-9.5); Platelet Count 200 K/mm3 (150-450); Red Blood Count 2.84 M/mm3 (4.1-5.4); Red Cell Distribution Width 18.5 % (11.5-14.0)
[2018-10-10 06:30] LABS: Mean Corpuscular Hemoglobin 27.4 pg (26-32)
[2018-10-10] MEDS: Colace 100 MG PO SCH (11:08)
[2018-10-10] MEDS: FERREX 150 PO SCH (11:08)
--- NOTE | 2018-10-10 12:41 | PCM.DS ---
Discharge Summary Date of Admission: 10/08/18 04:23 Admitting Physician: HAY GOLDEN Consults: Consults on Case 10/08/18 08:00 Notify Anesthesia Provider PRN Primary Care Provider: HAY GOLDEN Allergies Allergies No Known Drug Allergies Allergy (Unverified 06/07/18 17:33) Hospital Summary - Hospital Course Hospital Course: patient had with Dr Golden on 10/08 and was under her care during her entire stay until the date of discharge. reportedly had a hemorrhage , improved with extra pitocin and hemabate. hemoglobin 7.8 and her lochia is mild. no dizziness or lightheadedness, feels well. - Vitals & Intake/Output Vital Signs: Vital Signs Temperature 98.7 F 10/10/18 09:00 Pulse Rate 109 H 10/10/18 09:00 Respiratory Rate 20 10/10/18 09:00 Blood Pressure 119/72 10/10/18 09:00 O2 Sat by Pulse Oximetry 97 10/09/18 08:00 Intake & Output: Intake & Output 10/08/18 10/09/18 10/10/18 10/11/18 11:59 11:59 11:59 11:59 Intake Total 8292 9224 500 Output Total 1200 3000 Balance 7092 6224 500 - Lab Result Diagrams: 10/10/18 06:00 Lab Results-Last 24 Hrs: Lab Results-Last 24 Hours 10/08/18 10/10/18 Range/Units 15:36 06:00 WBC 8.0 (4.0-10.5) K/mm3 RBC 2.84 L (4.1-5.4) M/mm3 Hgb 7.8 L (12.0-16.0) gm/dl Hct 24.6 L (35-47) % MCV 86.6 (78-100) fl MCH 27.4 (26-32) pg MCHC 31.7 L (32-36) g/dl RDW 18.5 H (11.5-14.0) % Plt Count 200 (150-450) K/mm3 MPV 10.5 H (6-9.5) fl Fibrinogen See Separate Report Micro Results-Entire Visit: Microbiology 10/08/18 09:00 Urine Culture - Final Catherized NO GROWTH Discharge Exam General Appearance: no apparent distress, alert Skin Exam: normal color, warm, dry Respiratory Exam: normal breath sounds, lungs clear, No respiratory distress Cardiovascular Exam: regular rate/rhythm Gastrointestinal/Abdomen Exam: soft, other (fundus firm), No tenderness, No mass Extremity Exam: normal inspection, normal range of motion Final Diagnosis/Problem List - Final Discharge Diagnosis/Problem (1) Vaginal delivery Current Visit: Yes Status: Acute (2) hemorrhage Current Visit: Yes Status: Acute - Discharge Disposition: Home, Self-Care Condition: Stable Prescriptions: [place] Polysaccharides Complex [Ferrex 150] 150 mg PO DAILY capsule Discontinued Vits W-Ca,Fe,FA(<1Mg) [] 1 each PO DAILY Follow up with: HAY GOLDEN [Primary Care Provider] - 1 Week
[2018-10-10 16:03] VITALS: BP 118/82; PULSE 118
== END 2018-10-10 14:30 | disposition home or self-care (01) | DRG 806 ==
LOC: OB 18:01 → OBSVTOIN 10-08 04:23 → MED SURG 10-09 16:13
PROVIDERS: ADMIT Family Medicine; ATTEND Family Medicine
PROC: 10E0XZZ Delivery of Products of Conception, External Approach (ICD-10-PCS; principal; 2018-10-08)
PROC: 0KQM0ZZ Repair Perineum Muscle, Open Approach (ICD-10-PCS; 2018-10-08)
DX: O70.1 Second degree perineal laceration during delivery (principal); O72.2 Delayed and secondary postpartum hemorrhage; Z37.0 Single live birth; Z3A.41 41 weeks gestation of pregnancy
CPT/HCPCS: 36415; 80307; 85025; 85027; 85379; 85384; 85610; 85730; 86850; 86900; 86901; 86922; 87086; G0378; J0290; J2590; J2795; A9270-GY

== ENCOUNTER 2020-05-10 10:31 | Observation (INO) | payer BC ==
[2020-05-10] MEDS ORDERED: Lactated Ringers 1,000 ML IV ONE (10:42)
[2020-05-10] MEDS: Lactated Ringers 1,000 ML IV SCH ×2 (13:39→21:56)
[2020-05-10] MEDS ORDERED: TYLENOL 325 MG PO PRN (20:46)
[2020-05-11 00:18] VITALS: O2SAT 98
[2020-05-11] MEDS: Lactated Ringers 1,000 ML IV SCH (05:47)
[2020-05-11 13:36] VITALS: BP 116/72; PULSE 72
--- NOTE | 2020-05-11 16:38 | XRAY ---
Indication: Oligohydramnios. Limited ultrasound performed to evaluate TIAGO. heart rate 142 BPM. Four-quadrant TIAGO is 5.9 cm, previously 4.3 cm one day earlier. Comment: Preliminary report was given to Dr. Golden's nurse.
== END 2020-05-11 13:40 | disposition home or self-care (01) ==
LOC: OB 10:31
PROVIDERS: ADMIT Family Medicine; ATTEND Family Medicine
DX: Z34.83 Encounter for supervision of other normal pregnancy, third trimester (principal)
CPT/HCPCS: 59025; 76815; 84112; G0378; A9270-GY

== ENCOUNTER 2020-05-13 09:55 | Observation (INO) | payer BC ==
--- NOTE | 2020-05-13 10:35 | XRAY ---
Indication: Evaluate TIAGO. Limited ultrasound performed to evaluate TIAGO. heart rate 159 BPM. Four-quadrant TIAGO is 6.5 cm, previously 5.9 cm on May 11, 2020.
[2020-05-13 10:37] VITALS: BP 127/69; PULSE 88
== END 2020-05-13 10:55 | disposition home or self-care (01) ==
LOC: OB 09:55
PROVIDERS: ADMIT Family Medicine; ATTEND Family Medicine
DX: Z34.83 Encounter for supervision of other normal pregnancy, third trimester (principal)
CPT/HCPCS: 59025; 76815; G0378

== ENCOUNTER 2020-05-17 09:39 | Observation (INO) | payer BC ==
[2020-05-17 10:14] VITALS: BP 112/71; PULSE 83
== END 2020-05-17 10:45 | disposition home or self-care (01) ==
LOC: MED SURG 09:39
PROVIDERS: ADMIT Family Medicine; ATTEND Family Medicine
DX: Z34.83 Encounter for supervision of other normal pregnancy, third trimester (principal)
CPT/HCPCS: 59025; G0378

== ENCOUNTER 2020-05-22 04:07 | Inpatient (IN) | payer BC ==
[2020-05-22] MEDS ORDERED: Phenergan 25 MG INJ IM PRN (04:49)
[2020-05-22] MEDS ORDERED: Zofran 4 MG/2 ML VIAL IV PRN (04:58)
[2020-05-22] MEDS ORDERED: Lactated Ringers 1,000 ML IV SCH ×2 (05:45)
[2020-05-22 06:00] LABS: Hematocrit 35.8 % (35-47); Hemoglobin 11.3 gm/dl (12.0-16.0); Mean Cell Volume 81.5 fl (78-100); Mean Corpuscular Hemoglobin 25.7 pg (26-32); Mean Corpuscular Hgb Concent. 31.6 g/dl (32-36); Mean Platelet Volume 11.3 fl (7.5-11.0); Platelet Count 216 K/mm3 (150-450); Red Blood Count 4.39 M/mm3 (4.1-5.4); Red Cell Distribution Width 17.7 % (11.5-14.0); White Blood Count 8.5 K/mm3 (4.0-10.5)
[2020-05-22 06:02] LABS: Appearance SLIGHTLY CLOUDY (CLEAR); Bacteria RARE /HPF (NEGATIVE); Bilirubin NEGATIVE (NEGATIVE); Blood NEGATIVE Ery/ul (0-5); Glucose NEGATIVE (NEGATIVE); Ketones NEGATIVE (NEGATIVE); Leukocyte Esterase NEGATIVE (NEGATIVE); Mucus SLIGHT /HPF (NEGATIVE); Nitrite NEGATIVE (NEGATIVE); Protein,Urine Dip NEGATIVE (Negative); Specific Gravity 1.012 (1.005-1.025); Urobilinogen NEGATIVE mg/dL (0-1); WBC 0-2 /HPF (0-5)
[2020-05-22 06:11] LABS: INR 0.96 (0.8-3.0); PROTIME 10.9 SECONDS (9.95-12.35)
[2020-05-22 06:14] LABS: PTT 22.7 SECONDS (25.3-37.0)
[2020-05-22 06:15] LABS: Amphetamine,Urine NEGATIVE (NEGATIVE); Barbiturate,Urine NEGATIVE (NEGATIVE); Benzodiazepine,Urine NEGATIVE (NEGATIVE); Cocaine,Urine NEGATIVE (NEGATIVE); Methadone,Urine NEGATIVE (NEGATIVE); Opiate,Urine NEGATIVE (NEGATIVE); PCP,Urine NEGATIVE (NEGATIVE); THC,Urine NEGATIVE (NEGATIVE)
[2020-05-22] MEDS ORDERED: SOD CITRATE-CITRIC ACID SOLN PO ONE (06:15)
[2020-05-22] MEDS ORDERED: Pepcid 20 MG VIAL IV SCH (06:15)
[2020-05-22] MEDS ORDERED: CEFAZOLIN 2 GM-D5W BAG** 2 GM/50 ML ML IV SCH (06:15)
[2020-05-22] MEDS ORDERED: Reglan 10 MG/2 ML IV SCH (06:15)
[2020-05-22 06:46] LABS: ABO TYPING O; Antibody Screen NEGATIVE (NEGATIVE); RH TYPING POSITIVE
[2020-05-22] MEDS ORDERED: Astramorph-Pf 5 MG/10 ML ONE (07:19)
[2020-05-22] MEDS ORDERED: PHENYLEPHRINE HCL ONE (07:50)
[2020-05-22] MEDS ORDERED: Decadron 4 MG INJ ONE (07:55)
[2020-05-22] MEDS ORDERED: Zofran 4 MG/2 ML VIAL ONE (07:55)
[2020-05-22] MEDS ORDERED: Pitocin 10 UNITS/ML ONE (07:55)
[2020-05-22] MEDS ORDERED: MORPHINE SULFATE 2 MG INJ IV PRN (08:00)
[2020-05-22] MEDS ORDERED: Nubain 10 MG/ML IV PRN (08:00)
[2020-05-22] MEDS ORDERED: Mylicon 80MG PO PRN (09:00)
[2020-05-22] MEDS ORDERED: Dulcolax 10 MG SUPP PR PRN (09:00)
[2020-05-22] MEDS ORDERED: DEMEROL 50 MG IV PRN (09:00)
[2020-05-22] MEDS ORDERED: CORTISONE 1% CREAM TP PRN (09:00)
[2020-05-22] MEDS ORDERED: BENADRYL 50 MG/ML IV PRN (09:00)
[2020-05-22] MEDS ORDERED: HOLD NARCOTIC ANALGESICS AND SEDATIVES X24 HR MC PRN (09:00)
[2020-05-22] MEDS ORDERED: Narcan 0.4 MG/ML IV PRN (09:00)
[2020-05-22] MEDS ORDERED: Sodium Chloride 0.9% 10 ML FLUSH Syringe IJ SCH (09:00)
[2020-05-22] MEDS ORDERED: CLARITIN 10 MG PO PRN (09:00)
[2020-05-22] MEDS ORDERED: Anucort-HC SUPPOSITORY PR PRN (09:00)
[2020-05-22] MEDS ORDERED: LANSINOH 40 GM TOP PRN (09:00)
[2020-05-22] MEDS ORDERED: TYLENOL EXTRA STRENGTH 500 MG PO PRN (09:00)
[2020-05-22 10:04] LABS: Appearance CLEAR (CLEAR); Bilirubin NEGATIVE (NEGATIVE); Blood NEGATIVE Ery/ul (0-5); Glucose NEGATIVE (NEGATIVE); Ketones NEGATIVE (NEGATIVE); Leukocyte Esterase NEGATIVE (NEGATIVE); Mucus SLIGHT /HPF (NEGATIVE); Nitrite NEGATIVE (NEGATIVE); Protein,Urine Dip NEGATIVE (Negative); Specific Gravity 1.016 (1.005-1.025); Urobilinogen NEGATIVE mg/dL (0-1)
[2020-05-22] MEDS: Dextrose 5%-Lr IV Solution 1000 ML 1,000 ML IV SCH ×2 (10:56→18:26)
--- NOTE | 2020-05-22 11:32 | OP ---
SURGERY DATE/TIME: 05/22/2020 0727 PREOPERATIVE DIAGNOSES: 1) Breech presentation. 2) Term intrauterine . POSTOPERATIVE DIAGNOSES: 1) Breech presentation. 2) Term intrauterine . PROCEDURE: Primary low transverse section. SURGEON: Leandro Schwartz M.D. ANESTHESIA: Spinal by Matthieu Carreon CRNA. ESTIMATED BLOOD LOSS: 150 ml. IV FLUIDS: 1500 ml of crystalloid. URINE OUTPUT: 150 cc clear straw-colored urine. SPECIMEN: None. DESCRIPTION OF PROCEDURE: After informed, written consent was obtained, the patient was taken to the operating room. She underwent spinal anesthesia and was prepped and draped in the usual sterile fashion. After adequate level of anesthesia was assessed, a low transverse skin incision was made by knife and carried down through the subcutaneous fat to the level of the fascia. The fascia was nicked on both sides of the midline and extended in horizontal fashion using curved Alex scissors. The superior free edge of the fascia was then grasped with Shobha clamps and the underlying rectus muscles were dissected free. The same was repeated inferiorly. The peritoneal cavity was opened bluntly and extended in horizontal and a bladder flap was created and reflected over the lower uterine segment. A transverse uterine incision was made by knife and carried down to the level of the amniotic membranes which were carefully artificially ruptured. A viable male infant was delivered from the full breech presentation with meconium passage during delivery. The cord was clamped and cut and then he was handed off to the awaiting nursery team. The placenta was extracted manually and then the uterus was exteriorized. The uterine cavity was sponge curetted clean with lap sponge. Next, the uterine incision was closed with #1 chromic in running locked fashion. Good closure and good hemostasis were achieved. Posterior cul-de-sac was wiped free of blood and clot and then the uterus was returned to the peritoneal cavity. The lateral gutters were wiped free of blood and clot. The uterine incision was inspected and noted to be hemostatic with good closure. Next, the fascia was closed with 0 Vicryl in running fashion. Good closure and good hemostasis were achieved. The subcutaneous fat was irrigated with warm, sterile saline and then any areas of bleeding were cauterized with electrocautery. Finally the skin layer was closed with 4-0 undyed Vicryl in a running subcuticular fashion. Steri-Strips and occlusive dressing were placed over the incision and the patient was transferred to the recovery room in good condition.
[2020-05-22] MEDS: Colace 100 MG PO SCH ×3 (19:00→21:39)
[2020-05-22] MEDS: MOTRIN 400 MG PO PRN (21:39)
[2020-05-23] MEDS: MOTRIN 400 MG PO PRN ×3 (04:35→19:57)
[2020-05-23 04:54] LABS: Absolute Neutrophil Ct (ANC) 11.11 (1.4-6.9); BASOPHIL % 0.1 % (0.0-0.4); Basophil (Absolute #) 0.02 (0-0.4); Eosinophil % 0.2 % (0.00-5.0); Eosinophil (Absolute #) 0.03 (0-0.5); Hematocrit 29.3 % (35-47); Hemoglobin 9.1 gm/dl (12.0-16.0); Lymphocyte (Absolute #) 1.39 (1.0-4.6); Lymphocytes % 10.2 % (24.0-44.0); Mean Cell Volume 83.5 fl (78-100); Mean Corpuscular Hemoglobin 25.9 pg (26-32); Mean Corpuscular Hgb Concent. 31.1 g/dl (32-36); Mean Platelet Volume 11.1 fl (7.5-11.0); Monocyte (Absolute #) 1.11 (0.0-1.3); Monocytes % 8.1 % (0.0-12.0); Neutrophil % 81.4 % (36.0-66.0); Platelet Count 179 K/mm3 (150-450); Red Blood Count 3.51 M/mm3 (4.1-5.4); Red Cell Distribution Width 17.7 % (11.5-14.0); White Blood Count 13.7 K/mm3 (4.0-10.5)
[2020-05-23] MEDS ORDERED: FERREX 150 PO SCH (10:00)
[2020-05-23] MEDS: Colace 100 MG PO SCH ×2 (10:02→21:55)
[2020-05-23] MEDS: NORCO 5/325 MG PO PRN ×3 (10:49→21:55)
[2020-05-23 19:52] VITALS: O2SAT 97
[2020-05-24] MEDS: MOTRIN 400 MG PO PRN (02:08)
[2020-05-24] MEDS: NORCO 5/325 MG PO PRN ×2 (02:08→07:16)
--- NOTE | 2020-05-24 07:39 | PCM.DS ---
Discharge Summary Date of Admission: 05/22/20 05:12 Admitting Physician: PETER ANDERSON Consults: Consults on Case 05/22/20 05:00 Notify Anesthesia Provider PRN Primary Care Provider: HAY GARCIA Allergies Allergies No Known Drug Allergies Allergy (Verified 05/22/20 06:52) Hospital Summary - Hospital Course Hospital Course: patient had scheduled at 39 wks for breech presentation. doing great post-op with no complications. - Vitals & Intake/Output Vital Signs: Vital Signs Temperature 98.4 F 05/24/20 02:00 Pulse Rate 86 05/24/20 02:00 Respiratory Rate 18 05/24/20 02:00 Blood Pressure 119/75 05/24/20 02:00 O2 Sat by Pulse Oximetry 97 05/23/20 19:45 Intake & Output: Intake & Output 05/21/20 05/22/20 05/23/20 05/24/20 11:59 11:59 11:59 11:59 Intake Total 4267 1200 Output Total 4500 Balance -233 1200 Weight 90.718 kg 90.718 kg - Lab Result Diagrams: 05/23/20 04:49 Micro Results-Entire Visit: Microbiology 05/22/20 07:38 Urine Culture - Preliminary Catherized NO GROWTH TO DATE Discharge Exam General Appearance: no apparent distress, alert Respiratory Exam: normal breath sounds, lungs clear, No respiratory distress Cardiovascular Exam: regular rate/rhythm, normal heart sounds Gastrointestinal/Abdomen Exam: soft, other (incision c/d/i, steri strips intact), No tenderness, No mass Extremity Exam: normal inspection, normal range of motion Skin Exam: normal color, warm, dry Final Diagnosis/Problem List - Final Discharge Diagnosis/Problem (1) delivery delivered Current Visit: Yes Status: Acute Code(s): O82 - ENCOUNTER FOR DELIVERY WITHOUT INDICATION - Discharge Disposition: Home, Self-Care Condition: Stable Prescriptions: New Hydrocodone/APAP 5-325 Tab^^^ [[place] 5-325 Tablet^^^] 1 tab PO Q6HPRN PRN #28 tablet MDD 6 PRN Reason: Pain Continue Vits W-Ca,Fe,FA(<1Mg) [] 1 each PO DAILY Ferrous Sulfate [Iron] 325 mg PO DAILY Follow up with: HAY GARCIA [Primary Care Provider] - 1 Week
[2020-05-24 10:26] VITALS: BP 122/80; PULSE 108
== END 2020-05-24 10:20 | disposition home or self-care (01) | DRG 788 ==
LOC: UNDOADMOB 04:07 → OB 04:07 → PREOBSVTOIN 05:11 → OB 05:12
PROVIDERS: ADMIT Family Medicine; ATTEND Family Medicine
PROC: 10D00Z1 Extraction of Products of Conception, Low, Open Approach (ICD-10-PCS; principal; 2020-05-22)
DX: O32.1XX0 Maternal care for breech presentation, not applicable or unspecified (principal); Z3A.39 39 weeks gestation of pregnancy; Z37.0 Single live birth
CPT/HCPCS: 36415; 64488; 76937; 76942; 80307; 81001; 85025; 85027; 85610; 85730; 86850; 86900; 86901; 87086; 94799; J0690; J1100; J2274; J2370; J2405; J2590; A9270-GY